=== PATIENT | female | born 1950 | race Caucasian/White ===

== ENCOUNTER 2025-05-08 18:07 | Emergency (ER) | payer MEDICAID, MEDICARE | END 2025-05-08 19:41 | disposition home or self-care (01) | LOC: MW.ED 18:07 | DX: H10.13 Acute atopic conjunctivitis, bilateral (principal); J45.909 Unspecified asthma, uncomplicated; Z88.8 Allergy status to other drugs, medicaments and biological substances; Z79.899 Other long term (current) drug therapy; Z90.710 Acquired absence of both cervix and uterus | CPT/HCPCS: 99282; 99283 ==

== ENCOUNTER 2025-05-18 09:33 | Emergency (ER) | payer MEDICAID ==
[2025-05-18] MEDS: Ofloxacin 0.3% Ophth Soln 5 ML Bottle EYERT ONE (10:14)
== END 2025-05-18 10:22 | disposition home or self-care (01) ==
LOC: MW.ED 09:33
DX: H10.11 Acute atopic conjunctivitis, right eye (principal); J45.909 Unspecified asthma, uncomplicated; Z88.6 Allergy status to analgesic agent; Z79.899 Other long term (current) drug therapy
CPT/HCPCS: 99283; A9270